=== PATIENT | female | born 1995 | race Hispanic/Latino ===

== ENCOUNTER 2018-05-11 14:21 | Emergency (ER) | payer OTHER, SELFPAY ==
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
[2018-05-11] MEDS ORDERED: Ketorolac Tromethamine 60 MG/2 ML VIAL ONE (15:56)
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
== END 2018-05-11 16:31 | disposition home or self-care (01) ==
LOC: ERS 14:21
DX: S13.4XXA Sprain of ligaments of cervical spine, initial encounter (principal); S33.5XXA Sprain of ligaments of lumbar spine, initial encounter; S23.3XXA Sprain of ligaments of thoracic spine, initial encounter; S30.0XXA Contusion of lower back and pelvis, initial encounter; V43.52XA Car driver injured in collision with other type car in traffic accident, initial encounter
CPT/HCPCS: 71045; 72072; 72100; 72125; 72170; 96372; J1885

== ENCOUNTER 2024-11-03 13:38 | Emergency (ER) | payer SELFPAY | END 2024-11-03 15:44 | disposition home or self-care (01) | LOC: ERS 13:38 | DX: J11.1 Influenza due to unidentified influenza virus with other respiratory manifestations (principal) | CPT/HCPCS: 87428; 99283 ==